=== PATIENT | female | born 1985 | race Caucasian/White ===

== ENCOUNTER 2021-06-11 18:32 | Observation (INO) | payer OTHER, MEDICAID, SELFPAY ==
[2021-06-11] MEDS: INSULIN HUMAN NPH (*BKC) 100 UNITS/ML SUB-Q (22:31)
[2021-06-11 22:46] LABS: Glucose Point of Care 102 mg/dl (65-105)
[2021-06-11 22:48] VITALS: BP 116/63; PULSE 91
[2021-06-12 02:05] VITALS: BP 106/57; PULSE 89; RESP 16; TEMP 36.9
[2021-06-12 02:49] VITALS: BP 100/50; PULSE 85
[2021-06-12 04:20] VITALS: BP 116/60; PULSE 85
[2021-06-12 07:37] LABS: Glucose Point of Care 96 mg/dl (65-105)
--- NOTE | 2021-06-12 07:37 | PM.OBTRLD ---
OB - Triage/Final Diagnosis Visit Information Reason for evaluation: decreased movement Comments/Additional reasons for admission: Patient with decreased movement last pm. On arrival, variable decels noted. BPP 8/8 and normal MIKEY. Kept overnight for extended monitoring. FHTs reactive with random brief variable decels. DC home. I have assessed the risk for this patient, Ginger Wolff, and determined that she would benefit from observation care. Evaluation Laboratory results: Laboratory Tests 06/11/21 22:26 POC Capillary Glucose 102 Vital signs: Vital Signs - 24 hr 06/11/21 22:48 06/12/21 02:05 06/12/21 02:49 Temperature 98.5 F Pulse Rate 91 89 85 Respiratory Rate 16 Blood Pressure 116/63 106/57 L 100/50 L 06/12/21 04:20 Temperature Pulse Rate 85 Respiratory Rate Blood Pressure 116/60
== END 2021-06-12 07:55 | disposition home or self-care (01) ==
PROVIDERS: Admitting Provider Obstetrics & Gynecology Gynecology; PCP Nurse Practitioner Family; Visit Provider Obstetrics & Gynecology Gynecology
DX: O36.8190 Decreased fetal movements, unspecified trimester, not applicable or unspecified (principal); Z3A.00 Weeks of gestation of pregnancy not specified
CPT/HCPCS: 59025; 76815; 76819; 82948; G0378; G0379; J1815

== ENCOUNTER 2021-06-24 10:33 | Outpatient (RCR) | payer OTHER, MEDICAID, SELFPAY ==
[2021-06-03 12:17] VITALS: BP 114/64; PULSE 84
--- NOTE | 2021-06-11 20:25 | PC.NURSE ---
SEE OBIX DOCUMENTATION. PT ADMITTED FOR OBSERVATIONS AFTER NST>
[2021-06-17 12:30] VITALS: BP 115/77; PULSE 84
--- NOTE | ~2021-06-24 | US_ITS ---
EXAMINATION: US OB BPP wo non-stress EXAM DATE: 06/17/2021 12:27 INDICATION: Nonreactive stress test. 3rd trimester. TECHNIQUE: Pelvic obstetrical transabdominal sonogram was performed by a technologist. There are mu ltiple grayscale and Doppler images available for interpretation. Comparison is made to prior examina tion from 06/11/2021. FINDINGS: There is a single fetus identified in vertex presentation with a heart rate of 131 beats pe r minute. The placenta is located in the fundal position. There is no sonographic evidence of retrop lacental hemorrhage identified. There is subjectively expected amount of amniotic fluid. BIOPHYSICAL PROFILE (performed by the technologist) breathing (30 sec sustained breathing in 30 minutes): 2 out of 2 movement (3 gross body movements in 30 minutes): 2 out of 2 tone (one episode of dsvvycd-ynfhwqjso-zrwnbus limb movement): 2 out of 2 Amniotic fluid pocket (2 cm): 2 out of 2 Total score: 8 out of 8 IMPRESSION: 1. Single fetus with heart rate of 131 bpm. 2. Normal biophysical profile score of 8 out of 8. Reviewed, dictated and finalized at location A.
--- NOTE | ~2021-06-24 | US_ITS ---
EXAMINATION: US OB BPP wo non-stress DATE: 06/24/2021 11:28 INDICATION: Nonreactive nonstress test. Third trimester. TECHNIQUE: Real-time pelvic ultrasound was performed. COMPARISON: Ultrasound 06/17/2021 FINDINGS: There is a single living fetus in vertex presentation. The placenta is fundal. heart rate is 1 35 beats per minute (bpm). Biophysical profile performed by the technologist: breathing (30 sec sustained breathing in 30 minutes): 2 out of 2 movement (3 gross body movements in 30 minutes): 2 out of 2 tone (one episode of wbwnwhg-iozntcqfl-vyhwljw limb movement): 2 out of 2 Amniotic fluid pocket (2 cm): 2 out of 2 Total score: 8 out of 8 IMPRESSION: 1. Single living fetus in vertex presentation. 2. Biophysical profile 8 out of 8. Reviewed, dictated and finalized at location A.
--- NOTE | ~2021-06-24 | US_ITS ---
EXAMINATION: US OB limited w BPP DATE: 06/11/2021 19:57 INDICATION: Decreased movement and variable cardiac decelerations. Maternal gestational d iabetes. Assess amniotic fluid index. TECHNIQUE: Real-time pelvic ultrasound was performed. The interpreting radiologist was not present fo r the study. COMPARISON: None. FINDINGS: There is a single living fetus in vertex presentation. The placenta is fundal. heart rate is 1 34 beats per minute (bpm). Normal amniotic fluid index of 16.5 cm (5th%-95%: 7.7-24.9 cm at 36 weeks estimated gestational age) . Biophysical profile performed by the technologist: breathing (30 sec sustained breathing in 30 minutes): 2 out of 2 movement (3 gross body movements in 30 minutes): 2 out of 2 tone (one episode of oqzoiru-puswmgvig-nvhjbem limb movement): 2 out of 2 Amniotic fluid pocket (2 cm): 2 out of 2 Total score: 8 out of 8 IMPRESSION: 1. Single living fetus in vertex presentation with heart rate of 134 bpm. 2. Biophysical profile 8 out of 8. 3. Normal amniotic fluid index of 16.5 cm. Reviewed, dictated and finalized at location A.
--- NOTE | ~2021-06-24 | US_ITS ---
EXAMINATION: US OB BPP wo non-stress DATE: 06/03/2021 11:48 INDICATION: Nonreactive nonstress test, third trimester TECHNIQUE: Real-time pelvic ultrasound was performed. The interpreting radiologist was not present fo r the study. COMPARISON: None. FINDINGS: There is a single living fetus in vertex presentation. The placenta is fundal. heart rate is 12 5 beats per minute (bpm). Biophysical profile performed by the technologist: breathing (30 sec sustained breathing in 30 minutes): 2 out of 2 movement (3 gross body movements in 30 minutes): 2 out of 2 tone (one episode of jbnotlf-xjvcyabzp-pgrchnb limb movement): 2 out of 2 Amniotic fluid pocket (2 cm): 2 out of 2 Total score: 8 out of 8 IMPRESSION: 1. Single living fetus in vertex presentation. 2. Biophysical profile 8 out of 8. Reviewed, dictated and finalized at location A.
== END 2021-06-24 10:45 | disposition home or self-care (01) ==
LOC: ANHOBOP 10:33
PROVIDERS: PCP Nurse Practitioner Family; Visit Provider Obstetrics & Gynecology Gynecology
DX: O26.893 Other specified pregnancy related conditions, third trimester (principal); Z3A.34 34 weeks gestation of pregnancy; Z3A.35 35 weeks gestation of pregnancy; Z3A.36 36 weeks gestation of pregnancy
CPT/HCPCS: 59025; 76815; 76819

== ENCOUNTER 2021-06-24 10:33 | Observation (INO) | payer OTHER, SELFPAY ==
--- NOTE | 2021-06-24 14:30 | OBADM ---
This patient, Ginger Wolff, admitted to the OB room OB Post 117 for observation. Patient/family oriented to hospital policies and general routines including ID bracelet, bed and alarms, visiting hours, pain management, procedures, bathroom and other care routines, personal items, smoking policy, room service/diet, and visiting hours. Patient/Family are encouraged to report perceived risks to care and to ask questions if they do not understand what they are told or what they should do.
--- NOTE | 2021-06-24 14:31 | PC.NURSE ---
Addendum entered by Janay Gabriel RN 06/24/21 14:32: few hours. Original Note: 1147- called,informed pt had two decels prior to her BPP which was 04/27. Order received to monitor for the next few hor
--- NOTE | 2021-06-24 14:32 | PC.NURSE ---
1257- called, informed the baby's baseline is hard to determine, questionable decels noted with moderate variability. Order received to fax strip to office for to review. 1319- called, stated she reviewed the strip and agrees that the baseline is hard to determine, called it a wondering baseline . Orders received to observe pt until this evening and then she will re-evaluate pt at that time.
[2021-06-24 17:14] VITALS: BMI 31.4
--- NOTE | 2021-06-24 17:15 | PC.NURSE ---
1615- called in to give discharge order after reviewing the strip again at the office.
--- NOTE | 2021-06-30 08:38 | PM.OBTRLD ---
OB - Triage/Final Diagnosis Visit Information Reason for evaluation: other (Variable decelerations) Comments/Additional reasons for admission: I have assessed the risk for this patient, Ginger Renate Wolff, and determined that she would benefit from observation care. Admitted for extended monitoring and biophysical profile
== END 2021-06-24 16:22 | disposition home or self-care (01) ==
PROVIDERS: Admitting Provider Obstetrics & Gynecology Gynecology; PCP Nurse Practitioner Family; Visit Provider Obstetrics & Gynecology Gynecology
DX: O36.8330 Maternal care for abnormalities of the fetal heart rate or rhythm, third trimester, not applicable or unspecified (principal); Z3A.37 37 weeks gestation of pregnancy; Z37.0 Single live birth
CPT/HCPCS: 76819; G0378; G0379

== ENCOUNTER 2021-07-04 06:05 | Inpatient (IN) | payer OTHER, SELFPAY ==
[2021-07-04] VITALS (112 sets, daily range): BP systolic 84–152; BP diastolic 45–96; PULSE 70–107; RESP 16–20; TEMP 36.1–37.2; O2SAT 90–100; BMI 31.1
--- NOTE | 2021-07-04 06:19 | LDADM ---
This patient, Ginger Wolff, was admitted to Labor/Delivery/Recovery 103 on 07/04/21 at 06:05. Plans for labor, pain management and were discussed with patient. Patient/family oriented to hospital policies and general routines including ID bracelet, bed and alarms, visiting hours, pain management, procedures, bathroom and other care routines, personal items, smoking policy, room service/diet and guest tray routines, security routines, and visiting hours. Patient/Family are encouraged to report perceived risks to care and to ask questions if they do not understand what they are told or what they should do. See OBIX for further documentation.
[2021-07-04 06:59] LABS: Basophils Absolute Auto 0.1 K/mm3 (0.0-0.1); Basophils Percent Auto 0.4 % (0.2-1.2); Eosinophils Absolute Auto 0.1 K/mm3 (0-0.3); Eosinophils Percent Auto 0.8 % (0-4.4); Hematocrit 37.8 % (37.0-47.0); Hemoglobin 12.5 g/dL (12.0-15.0); Immature Granulocyte Percent A 1.5 % (0-0.5); Lymphocytes Absolute Auto 3.51 K/mm3 (0.9-3.2); Lymphocytes Percent Auto 26.3 % (18.3-44.2); Mean Corpuscular HGB Conc 33.1 g/dl (32-36); Mean Corpuscular Hemoglobin 31.5 pg (26-34); Mean Corpuscular Volume 95.2 fl (80-100); Mean Platelet Volume 12.2 fl (7.4-10.4); Monocytes Absolute Auto 0.8 K/mm3 (0.1-0.6); Monocytes Percent Auto 5.8 % (2.6-8.5); Neutrophils Absolute Auto 8.7 K/mm3 (1.3-6.7); Neutrophils Percent Auto 65.2 % (45.5-73.1); Platelet Count Result 160 k/mm3 (150-375); Red Blood Count 3.97 M/mm3 (4.2-5.4); Red Cell Distribution Width 14.6 % (11.5-14.5); White Blood Count 13.3 K/mm3 (4.5-10.0)
[2021-07-04] MEDS: LACTATED RINGERS 1,000 ML 125 ML IV CONT ×3 (07:01→10:17)
[2021-07-04] MEDS: OXYTOCIN 30 UNITS/NS 500 ML 30 UNITS/500 ML BAG IV CONT (07:01)
[2021-07-04 07:12] LABS: Glucose Point of Care 116 mg/dl (65-105)
--- NOTE | 2021-07-04 07:57 | WPDOBADMIT ---
Obstetrics - Admit Note Admission Note: record reviewed. No pertinent additions to the history and/or any subsequent changes in the physical findings that are not consistent with the expected course of the were found. AROM clear fluid /-2 vertex Additions to the history and/or subsequent changes in the physical findings follow. None.
--- NOTE | 2021-07-04 08:25 | WPDANESEPPF ---
Anes - Initial Pre Proc Eval Date/Time: 07/04/21 08:25 Surgeon: Jaswinder Montelongo MD Pre Op Diagnosis: IOL Patient Data Age: 35 Gender: F Height: 1.7 m Weight: 90.4 kg Last Vital Signs Temp 36.6 C 07/04/21 06:30 Pulse 89 07/04/21 08:21 Resp 20 07/04/21 06:30 BP 120/72 07/04/21 08:21 Pulse Ox 100 07/04/21 08:23 Allergies Allergy/AdvReac Type Severity Reaction Status Date / Time No Known Allergies Allergy Verified 07/04/21 07:40 Home Medications Medication Instructions Recorded Confirmed Type Humulin N NPH U-100 Insulin 5 unit SUBCUT HS 06/11/21 07/04/21 History insulin lispro 8 unit SUBCUT DAILY 07/04/21 07/04/21 History metoprolol tartrate 50 mg PO BID 07/04/21 07/04/21 History sertraline 50 mg PO DAILY 07/04/21 07/04/21 History Laboratory Tests 07/04/21 07/04/21 07/04/21 06:39 06:39 06:41 WBC 13.3 K/mm3 H K/mm3 (4.5-10.0) RBC 3.97 M/mm3 L M/mm3 (4.2-5.4) Hgb 12.5 g/dL g/dL (12.0-15.0) Hct 37.8 % % (37.0-47.0) MCV 95.2 fl fl (80-100) MCH 31.5 pg pg (26-34) MCHC 33.1 g/dl g/dl (32-36) RDW 14.6 % H % (11.5-14.5) Plt Count 160 k/mm3 k/mm3 (150-375) MPV 12.2 fl H fl (7.4-10.4) Immature Gran % (Auto) 1.5 % H % (0-0.5) Neut % (Auto) 65.2 % % (45.5-73.1) Lymph % (Auto) 26.3 % % (18.3-44.2) [place] % (Auto) 5.8 % % (2.6-8.5) Eos % (Auto) 0.8 % % (0-4.4) Baso % (Auto) 0.4 % % (0.2-1.2) Lymph # (Auto) 3.51 K/mm3 H K/mm3 (0.9-3.2) [place] # (Auto) 0.8 K/mm3 H K/mm3 (0.1-0.6) Eos # (Auto) 0.1 K/mm3 K/mm3 (0-0.3) Baso # (Auto) 0.1 K/mm3 K/mm3 (0.0-0.1) Abs Immat Gran (auto) 0.20 K/mm3 H K/mm3 (0.00-0.031) Absolute Neuts (auto) 8.7 K/mm3 H K/mm3 (1.3-6.7) Absolute Nucleated RBC 0.0 K/mm3 K/mm3 (0.0-0.012) Nucleated RBC % 0.0 % % (0.0-0.2) POC Capillary Glucose 116 mg/dl H mg/dl (65-105) RPR Pending Patient hx anesthesia problems: none Family hx anesthesia problems: none Results Review: All pre-operative results and documents have been reviewed as part of the pre-operative evaluation. [facility] Past Medical History Medical History Anxiety Diabetes Fibromyalgia SVT (supraventricular tachycardia) Family History Family History Mother Acute myocardial infarction Father Hypertension Social History Social History Smoking packs per day: 0.5 Smoking cigarettes per day: 10.0 Years smoked: 20 Smoking pack-years: 10.00 Smoking status: Current every day smoker Tobacco type: cigarettes Spiritual care concerns: No Anes - Eval Final PreProcedure Day of Procedure 07/04/21 08:25 Patient weight: overweight Neurological: alert and oriented ASA classification: III Emergent: no Anesthetic plan: proceed Anesthesia type and monitoring: regional epidural and standard monitoring Results Review: All pre-operative results and documents have been reviewed as part of the pre-operative evaluation. Informed Consent: The patient's anesthetic plan and its attendant risks and benefits were discussed with the patient/family/POA. Questions were solicited and answers provided to the satisfaction of the patient/family/POA.
[2021-07-04 10:21] LABS: Glucose Point of Care 81 mg/dl (65-105)
[2021-07-04 11:51] LABS: Rapid Plasma Reagin Non-Reactive (NonReactive)
[2021-07-04 14:25] LABS: Glucose Point of Care 81 mg/dl (65-105)
[2021-07-04] MEDS: OXYTOCIN 30 UNITS/NS 500 ML 30 UNITS/500 ML BAG 125 UNITS IV CONT (14:42)
[2021-07-04] MEDS: BENZOCAINE 20% AER SPR (*SP) 56 GM CAN 1 SPRAY TOPICAL (16:25)
[2021-07-04] MEDS: WITCH HAZEL 40 PADS 1 PAD TOPICAL (16:25)
[2021-07-04] MEDS: IBUPROFEN 600 MG TABLET PO (16:25)
[2021-07-04] MEDS: METOPROLOL TARTRATE 50 MG TAB PO (17:04)
--- NOTE | 2021-07-04 17:10 | OBPPTRN ---
Patient transferred to post room # 287 via wheelchair. Oriented to unit, room, information board, rooming in, admission packet and security measures. Patient verbalizes understanding.
[2021-07-05] VITALS (7 sets, daily range): BP systolic 110–153; BP diastolic 63–86; PULSE 79–97; RESP 16–20; TEMP 36.1–37.1; O2SAT 98–100
[2021-07-05] MEDS: IBUPROFEN 600 MG TABLET PO ×3 (02:36→17:53)
[2021-07-05] MEDS: ACETAMINOPHEN 325 MG TABLET 650 MG PO (03:57)
[2021-07-05 05:22] LABS: Hematocrit 30.9 % (37.0-47.0); Hemoglobin 9.9 g/dL (12.0-15.0)
[2021-07-05] MEDS: METOPROLOL TARTRATE 50 MG TAB PO (08:12)
[2021-07-05] MEDS: POLYSACCHARIDE IRON COMPLEX 150 MG CAPSULE PO ×2 (08:12→17:53)
[2021-07-05] MEDS: SERTRALINE HCL 50 MG TABLET PO (08:12)
--- NOTE | 2021-07-05 10:52 | PM.OBPNVD ---
OB - PN: Subj Subjective Date/time seen: 07/05/21 10:52 doing well no complaints OB - PN: Obj Data Labs CBC & Chem 7: 07/05/21 03:55 Labs: Laboratory Results - last 24 hr 07/04/21 07/04/21 07/05/21 06:39 13:58 03:55 Hgb 9.9 L Hct 30.9 L POC Capillary Glucose 81 RPR Non-reactive OB - PN A/P Assessment and Plan (1) (normal spontaneous vaginal delivery): Code(s): O80 - Encounter for full-term uncomplicated delivery Status: Acute Assessment and Plan: continue with post care. Time Spent With Patient Time: Total time spent is greater than 50% in coordination of care (as documented) at patient's floor/unit and/or counseling patient: Exam Narrative: ff below umbilicus
--- NOTE | 2021-07-05 15:31 | PM.OBPRVD ---
OB - Delivery Note Procedure Delivery date: 07/04/21 events: Gestational Diabetes Intrapartal events: None Induction method: AROM and per pitocin protocol Delivery monitor: external FHT and external uterine Route of delivery: Laceration Description: None Specimen: Yes Anesthesia type: Epidural Disposition: floor Baby Date of : 07/04/21 Time of : 14:09 Weeks of gestation at delivery: 39 gender: Female Weight (pounds): 5 Weight (ounces): 5 presentation: vertex Placenta delivery description: Spontaneous cord vessel description: 3 Vessels and Clamped/Cut score one minute: 9 score five minutes: 9
[2021-07-06] MEDS: IBUPROFEN 600 MG TABLET PO ×2 (03:45→08:02)
[2021-07-06 08:00] VITALS: BP 133/83; PULSE 88; RESP 18; TEMP 37.1; O2SAT 100; O2SAT 97
[2021-07-06] MEDS: POLYSACCHARIDE IRON COMPLEX 150 MG CAPSULE PO (08:02)
[2021-07-06] MEDS: MULTIVIT/MIN/PREN/FOL AC/IRON TABLET 1 TAB PO (08:02)
[2021-07-06] MEDS: SERTRALINE HCL 50 MG TABLET PO (08:02)
[2021-07-06 08:04] VITALS: PULSE 88
[2021-07-06] MEDS: METOPROLOL TARTRATE 50 MG TAB PO (08:04)
--- NOTE | 2021-07-06 11:41 | P.PNOB_ITS ---
OB - PN: Subj Subjective Date/time seen: 07/06/21 11:41 doing okay mild back pain OB - PN: Obj Data Labs CBC & Chem 7: 07/05/21 03:55 OB - PN A/P Assessment and Plan (1) (normal spontaneous vaginal delivery): Code(s): O80 - Encounter for full-term uncomplicated delivery Status: Acute Assessment and Plan: d/c home continue with vitamin supplements. f/u in 1 week. Continue with metoprolol and zoloft and f/u with pcp as planned. Time Spent With Patient Time: Total time spent is greater than 50% in coordination of care (as do cumented) at patient's floor/unit and/or counseling patient: Exam Narrative: ff below umbilicus
[2021-07-09 11:19] VITALS: BP 138/82; PULSE 81; RESP 20; TEMP 36.9; O2SAT 100
--- NOTE | 2021-07-10 02:53 | PM.OBDSVD ---
DS: Admitting Diagnosis Discharge Date 07/06/21 Admitting Diagnosis induction of labor DS: Discharge Diagnosis Discharge Diagnosis (1) (normal spontaneous vaginal delivery): Code(s): O80 - Encounter for full-term uncomplicated delivery Status: Acute OB - DS: Summary OB Procedures : None OB Procedures Intrapartum: Spontaneous Vag Delivery OB Procedures: : None Time Spent with Patient Time attestation: Total time spent providing and/or coordinating discharge services: DS: Data Data Completed and Pending Completed studies during hospitalization: Pending at discharge 07/04/21 14:15 Surgical [PTH] Routine Discharge Plan Discharge Attending physician on discharge: Jaswinder Montelongo Consulting providers: Alex Crocker Discharging Clinician: Jaswinder Montelongo Patient Disposition: Home, Self-Care Activity: pelvic rest Diet: regular Discharge Instructions: Education: Mom and Baby Guide Given to: Mother Follow-Up: Call your delivering provider's office for an appointment to be seen in: 6 Weeks Mom and baby should come to the [facility] for the follow-up appointment. Appointment Date/Time: Friday, July 09, 2021 at 11:00 am What to expect at your follow-up visit: Blood Pressure Check Physical Assessment Call [phone] if you are unable to keep your appointment time. BREAST CARE: * Wear a snug supportive bra. * For engorgement discomfort: Bottle Feeding: * May apply ice packs EPISIOTOMY/PERINEAL CARE: * Until bleeding stops, use your kaden bottle after urinating * Change your pad frequently throughout the day * You may take sitz baths several times a day (fill your bathtub with warm water and soak for 20 minutes.) Do NOT bathe in the water * No tub baths until seen by your physician - You may shower ACTIVITY: * Rest as much as possible. * Do not exercise or lift anything heavier than your baby (such as laundry or other children.) * Avoid stairs or driving as much as possible. * Do not put anything into the vagina. No douching, tampons, or sexual activity until seen by physician. NOTIFY PHYSICIAN IF YOU HAVE ANY QUESTIONS OR IF ANY OF THE FOLLOWING SYMPTOMS OCCUR: * If your vaginal area becomes red, swollen, or more painful than what you have experienced in the hospital. * If your vaginal bleeding becomes foul smelling. * If your vaginal bleeding becomes more heavy than a period or if your bleeding changes from pink to bright red. However, you may pass an occasional walnut-sized clot once or twice for the first week . * If you experience a sharp, shooting pain in your calves. * If you discover a hard, reddened area on your breast or if you experience flu-like symptoms. DIET: * Eat regular, well-balanced meals. * Drink plenty of fluids daily. Patient Instructions: How to Stop Smoking (DC) Stand Alone Forms: General Discharge Information Follow-up/Referrals: Jaswinder Montelongo MD [Physician] - Discharge Medications: Continued metoprolol tartrate 50 mg tablet 50 mg PO BID RF: 0 sertraline 50 mg tablet 50 mg PO DAILY RF: 0 Discontinued Humulin N NPH U-100 Insulin 100 unit/mL suspension 5 unit SUBCUT HS RF: 0 insulin lispro 100 unit/mL solution 8 unit subcut DAILY RF: 0 Date of admission: 07/04/21 06:05 Primary Care Provider: MILDRED,EZRA Admitting Provider: Jaswinder Montelongo Attending physician on admission: Jaswinder Montelongo Condition: Stable
== END 2021-07-06 12:40 | disposition home or self-care (01) | DRG 807 ==
LOC: ANHLDR 14:41 → ANHOB2 17:29
PROVIDERS: Admitting Provider Obstetrics & Gynecology; PCP Nurse Practitioner Family; Visit Provider Obstetrics & Gynecology
DX: O24.424 Gestational diabetes mellitus in childbirth, insulin controlled (principal); Z37.0 Single live birth; O76 Abnormality in fetal heart rate and rhythm complicating labor and delivery; O69.1XX0 Labor and delivery complicated by cord around neck, with compression, not applicable or unspecified; Z3A.39 39 weeks gestation of pregnancy
CPT/HCPCS: 36415; 82948; 85014; 85018; 85025; 86592; 86850; 86900; 86901; 88307; A9270; J2590; J7120